=== PATIENT | female | born 1940 | race Caucasian/White ===

== ENCOUNTER 2022-12-18 16:28 | Emergency (ER) | payer MEDICARE, MEDICAID ==
[~2022-12-18] VITALS: Ht 167.6 cm; Wt 59.8 kg
[2022-12-18 16:39] VITALS: BP 212/117
[2022-12-18] MEDS ORDERED: LIDOcaine 1% 30ml preserv. free vial IJ ONE (17:50)
== END 2022-12-18 19:26 | disposition home or self-care (01) ==
LOC: ER 16:29
DX: S61.216A Laceration without foreign body of right little finger without damage to nail, initial encounter (principal); I10 Essential (primary) hypertension; Z88.0 Allergy status to penicillin; W23.0XXA Caught, crushed, jammed, or pinched between moving objects, initial encounter; Y93.89 Activity, other specified; Y92.89 Other specified places as the place of occurrence of the external cause; Y99.8 Other external cause status
CPT/HCPCS: 73140; 99283; A6222; J7030; A6449